=== PATIENT | male | born 1985 | race Caucasian/White ===

== ENCOUNTER 2016-12-15 17:01 | Emergency (ER) | payer OTHER ==
[~2016-12-15] VITALS: Ht 180.3 cm; Wt 83.0 kg
[~2016-12-15 17:01] MED LIST: CEPH500C3 PO; IBUP600T26 PO; LORTA5 PO
[2016-12-15 17:03] VITALS: BP 138/73; PULSE 84; RESP 15; TEMP 98.2; O2SAT 99
--- NOTE | 2016-12-15 17:52 | PD ---
HPI Chief Complaint: Skin Problem Time Seen by Provider: 17:52 Travel History International Travel<30 days: No Contact w/Intl Traveler<30days: No Traveled to known affect area: No History of Present Illness HPI 31-year-old male presents to emergency Department with burning tender rash to the right neck, as well as viral: Sores to the tongue and roof of mouth. As couple of days. Patient states a history of neck pain in the right neck started a week ago with a rash that gotten worse over the last several days. Patient was seen at [facility], and treated with Bactrim and Bactroban. Patient at that time did not have the lateral lesions in his mouth. He denies any other significant symptoms. He has no eye pain or headache. Pain is approximately 6 out of 10. He is concerned now that he has the sores in his mouth. He has no difficulty swallowing. No known drug allergies PFSH Social History Alcohol Use: Yes (12 pk daily ) Tobacco Use: Yes (1/2 ppd) Substance Use: No Allergies-Medications (Allergen,Severity, Reaction): Coded Allergies: No Known Allergies (Unverified , 12/15/16) Reported Meds & Prescriptions Reported Meds & Active Scripts Active Acyclovir 200 Mg Cap 800 Mg PO 5 TIMES A DAY 7 Days Keflex (Cephalexin Monohydrate) 500 Mg Cap 500 Mg PO Q8 5 Days Ibuprofen 600 Mg Tab 600 Mg PO Q8H PRN [place] 5-325 mg (Hydrocodone-Acetaminophen 5-325 mg) 5 mg/325 mg Tab 1 Tab PO Q6H PRN Review of Systems Except as stated in HPI: all other systems reviewed are Neg General / Constitutional: No: Fever Eyes: No: Visual changes HENT: Positive: Sore Throat, Neck Pain, Other (see history present illness.), No: Headaches, Vertigo, Lightheadedness, Rhinitis, Rhinorrhea, Congestion, Nosebleed, Neck Stiffness, Earache Cardiovascular: No: Chest Pain or Discomfort Respiratory: No: Shortness of Breath Gastrointestinal: No: Abdominal Pain Genitourinary: No: Dysuria Musculoskeletal: No: Pain Skin: Positive Rash Neurologic: No: Weakness Psychiatric: No: Depression Endocrine: No: Polydipsia Hematologic/Lymphatic: No: Easy Bruising Physical Exam Narrative GENERAL: Patient appears no acute distress. SKIN: Warm and dry. Patient has a half-dollar sized vesicular erythematous raised lesion with some crusting to the right lateral neck. No other rash or lesions are noted. HEAD: Atraumatic. Normocephalic. EYES: Pupils equal and round. No scleral icterus. No injection or drainage. ENT: No nasal bleeding or discharge. Mucous membranes pink and moist. Patient has multiple erythematous bilateral cold sores to the roof of the mouth and tongue only to the right buccal membranes. NECK: Trachea midline. Supple and nontender without significant lymphadenopathy. CARDIOVASCULAR: Regular rate and rhythm. RESPIRATORY: No accessory muscle use. Clear to auscultation. Breath sounds equal bilaterally. MUSCULOSKELETAL: Extremities without clubbing, cyanosis, or edema. No obvious deformities. NEUROLOGICAL: Awake and alert. No obvious cranial nerve deficits. Motor grossly within normal limits. Five out of 5 muscle strength in the arms and legs. Normal speech. PSYCHIATRIC: Appropriate mood and affect; insight and judgment normal. Data Data Last Documented VS Vital Signs Date Time Temp Pulse Resp B/P Pulse Ox O2 Delivery O2 Flow Rate FiO2 12/15/16 17:03 98.2 84 15 138/73 99 MDM Medical Decision Making Medical Screen Exam Complete: Yes Emergency Medical Condition: Yes Differential Diagnosis Rash. MRSA. Shingles. Viral exanthem. Narrative Course Patient is medically stable at time of exam. Patient is to continue the Bactrim and percent ointment as previously prescribed. Patient started on acyclovir 200 mg tabs he states 4 tablets 5 times a day for 7 days. Patient can take Tylenol as well for pain. Patient to follow up if symptoms do not improve or worsen in the next several days. Diagnosis Primary Impression: Shingles rash Qualified Code: B02.9 - Herpes zoster without complication Referrals: [facility] Patient Instructions: General Instructions, Shingles (ED) Additional Instructions: Patient is to continue the Bactrim and percent ointment as previously prescribed. Patient started on acyclovir 200 mg tabs he states 4 tablets 5 times a day for 7 days. Patient can take Tylenol as well for pain. Patient to follow up if symptoms do not improve or worsen in the next several days. Med/Other Pt SpecificInfo: Prescription(s) given Scripts Acyclovir 200 Mg [id number] Mg PO 5 TIMES A DAY 7 Days Ref 0 Prov:Wily De Jesus MD 12/15/16 Disposition: 01 DISCHARGE HOME Condition: Stable Jaspreet Hdz Dec 15, 2016 17:52
[2016-12-15] MEDS ORDERED: ACYC200C66 PO ×2 (18:00→18:03)
== END 2016-12-15 18:31 | disposition home or self-care (01) ==
LOC: NEPD 17:01
DX: B02.9 Zoster without complications (principal); J02.9 Acute pharyngitis, unspecified; M54.2 Cervicalgia; F17.200 Nicotine dependence, unspecified, uncomplicated; Z79.899 Other long term (current) drug therapy
CPT/HCPCS: 99283

== ENCOUNTER 2017-02-26 15:53 | Emergency (ER) | payer SELFPAY ==
[~2017-02-26] VITALS: Ht 180.3 cm; Wt 83.0 kg
[~2017-02-26 15:53] MED LIST changes: +ACYC200C66 PO
[2017-02-26 15:56] VITALS: BP 150/79; PULSE 81; RESP 18; TEMP 99; O2SAT 99
--- NOTE | 2017-02-26 19:34 | PD ---
HPI Chief Complaint: Chest Pain Time Seen by Provider: 19:24 Travel History International Travel<30 days: No Contact w/Intl Traveler<30days: No Traveled to known affect area: No History of Present Illness HPI 31-year-old male complains of chest pain. Patient states that he has intermittent chest pain for the past 3 years. Patient states the pain is sharp pain medication pressure pain localized to the left chest. Patient denies any pain radiation. Patient denies any palpitation nausea or diaphoresis. Patient states that he has occasionally dry cough recently. Patient states that he has intermittent dizziness. Patient has history hypertension however not on any medication. Patient denies any history diabetes or hyperlipidemia. Patient is a smoker. Patient denies family history of heart disease. On a scale of 1-10 the pain is a 3. PFSH Past Medical History Diminished Hearing: No Immunizations Current: No Shingles: Yes Past Surgical History Eye Surgery: Yes (L EYE SX) Social History Alcohol Use: Yes (OCC ) Tobacco Use: Yes Substance Use: No (DENIES ) Allergies-Medications (Allergen,Severity, Reaction): Coded Allergies: No Known Allergies (Unverified , 02/26/17) Reported Meds & Prescriptions Reported Meds & Active Scripts Active Acyclovir 200 Mg Cap 800 Mg PO 5 TIMES A DAY 7 Days Keflex (Cephalexin Monohydrate) 500 Mg Cap 500 Mg PO Q8 5 Days Ibuprofen 600 Mg Tab 600 Mg PO Q8H PRN [place] 5-325 mg (Hydrocodone-Acetaminophen 5-325 mg) 5 mg/325 mg Tab 1 Tab PO Q6H PRN Review of Systems General / Constitutional: No: Fever Eyes: No: Visual changes HENT: No: Headaches Cardiovascular: Positive: Chest Pain or Discomfort Respiratory: No: Shortness of Breath Gastrointestinal: No: Abdominal Pain Genitourinary: No: Dysuria Musculoskeletal: No: Pain Skin: No Rash Neurologic: No: Weakness Psychiatric: No: Depression Endocrine: No: Polydipsia Hematologic/Lymphatic: No: Easy Bruising Physical Exam Narrative GENERAL: Well-nourished, well-developed patient. SKIN: Focused skin assessment warm/dry. HEAD: Normocephalic. EYES: No scleral icterus. No injection or drainage. NECK: Supple, trachea midline. No JVD or lymphadenopathy. CARDIOVASCULAR: Regular rate and rhythm without murmurs, gallops, or rubs. RESPIRATORY: Breath sounds equal bilaterally. No accessory muscle use. GASTROINTESTINAL: Abdomen soft, non-tender, nondistended. MUSCULOSKELETAL: No cyanosis, or edema. BACK: Nontender without obvious deformity. No CVA tenderness. Neurologic exam normal. Data Data Last Documented VS Vital Signs Date Time Temp Pulse Resp B/P (MAP) Pulse Ox O2 Delivery O2 Flow Rate FiO2 02/26/17 19:44 68 18 100 Room Air 02/26/17 19:44 136/81 (99) 02/26/17 15:56 99.0 Orders Orders Electrocardiogram (02/26/17 ) Electrocardiogram (02/26/17 19:30) Complete Blood Count With Diff (02/26/17 19:30) Comprehensive Metabolic Panel (02/26/17 19:30) Creatine Kinase (Cpk) (02/26/17 19:30) Troponin I (02/26/17 19:30) Prothrombin Time / Inr (Pt) (02/26/17 19:30) Act Partial Throm Time (Ptt) (02/26/17 19:30) Chest, Single Ap (02/26/17 19:30) Iv Access Insert/Monitor (02/26/17 19:30) Ecg Monitoring (02/26/17 19:30) Oximetry (02/26/17 19:30) Labs Laboratory Tests Test 02/26/17 19:35 White Blood Count 10.2 TH/MM3 Red Blood Count 4.60 MIL/MM3 Hemoglobin 14.8 GM/DL Hematocrit 42.5 % Mean Corpuscular Volume 92.4 FL Mean Corpuscular Hemoglobin 32.2 PG Mean Corpuscular Hemoglobin Concent 34.8 % Red Cell Distribution Width 13.3 % Platelet Count 248 TH/MM3 Mean Platelet Volume 8.0 FL Neutrophils (%) (Auto) 64.8 % Lymphocytes (%) (Auto) 26.8 % Monocytes (%) (Auto) 5.7 % Eosinophils (%) (Auto) 2.3 % Basophils (%) (Auto) 0.4 % Neutrophils # (Auto) 6.6 TH/MM3 Lymphocytes # (Auto) 2.7 TH/MM3 Monocytes # (Auto) 0.6 TH/MM3 Eosinophils # (Auto) 0.2 TH/MM3 Basophils # (Auto) 0.0 TH/MM3 CBC Comment DIFF FINAL Differential Comment Prothrombin Time 10.4 SEC Prothromb Time International Ratio 0.9 RATIO Activated Partial Thromboplast Time 26.6 SEC Blood Urea Nitrogen 15 MG/DL Creatinine 0.89 MG/DL Random Glucose 139 MG/DL Total Protein 7.6 GM/DL Albumin 4.0 GM/DL Calcium Level 9.2 MG/DL Alkaline Phosphatase 108 U/L Aspartate Amino Transf (AST/SGOT) 19 U/L Alanine Aminotransferase (ALT/SGPT) 26 U/L Total Bilirubin 0.6 MG/DL Sodium Level 138 MEQ/L Potassium Level 3.7 MEQ/L Chloride Level 105 MEQ/L Carbon Dioxide Level 25.6 MEQ/L Anion Gap 7 MEQ/L Estimat Glomerular Filtration Rate 98 ML/MIN Total Creatine Kinase 230 U/L Troponin I LESS THAN 0.02 NG/ML MDM Medical Decision Making Medical Screen Exam Complete: Yes Emergency Medical Condition: Yes Interpretation(s) 8:57 PM. EKG shows sinus rhythm nonspecific ST-T wave changes. Last Impressions Chest X-Ray 02/26/17 1930 Signed Impressions: Service Date/Time: Sunday, February 26, 2017 20:35 - CONCLUSION: No acute cardiopulmonary disease. Alvino Beckford MD 8:57 PM. CBC within normal limit. CMP within normal limit. Cardiac enzymes are normal. Differential Diagnosis Differential diagnosis including musculoskeletal, angina, [place], PE, pneumothorax. Narrative Course 31-year-old male with left sided chest pain. Diagnosis Primary Impression: Chest pain Qualified Codes: R07.9 - Chest pain, unspecified Patient Instructions: General Instructions Additional Instructions: Advil as needed for pain. Aspirin daily. Follow-up with personal physician. Return if increased chest pain shortness of breath. Med/Other Pt SpecificInfo: No Meds Exist/No RX given Disposition: 01 DISCHARGE HOME Condition: Stable Tristen Sanders MD Feb 26, 2017 19:34
[2017-02-26 19:44] VITALS: BP 136/81; PULSE 68; RESP 18; O2SAT 99
[2017-02-26 20:15] LABS: AUTOMATED NEUTROPHIL # 6.6 TH/MM3 (1.8-7.7); BASOPHIL % 0.4 % (0.0-2.0); EOSINOPHIL # 0.2 TH/MM3 (0-0.4); EOSINOPHIL % 2.3 % (0.0-4.0); HEMATOCRIT 42.5 % (39.0-51.0); HEMO FLAGS DIFF FINAL; LYMPH % 26.8 % (9.0-44.0); LYMPHOCYTE # 2.7 TH/MM3 (1.0-4.8); MEAN CELL VOLUME 92.4 FL (80.0-100.0); MEAN CORPUSCULAR HEMOGLOBIN 32.2 PG (27.0-34.0); MEAN CORPUSCULAR HGB CONC 34.8 % (32.0-36.0); MONO % 5.7 % (0.0-8.0); NEUT % 64.8 % (16.0-70.0); PLATELET COUNT 248 TH/MM3 (150-450); RED CELL DISTRIBUTION WIDTH 13.3 % (11.6-17.2); WHITE BLOOD COUNT 10.2 TH/MM3 (4.0-11.0)
[2017-02-26 20:21] LABS: ANION GAP 7 MEQ/L (5-15); AST (GOT) 19 U/L (15-37); BICARBONATE 25.6 MEQ/L (21.0-32.0); BLOOD UREA NITROGEN 15 MG/DL (7-18); CHLORIDE 105 MEQ/L (98-107); GLOMERULAR FILTRATION RATE 98 ML/MIN (>89); POTASSIUM 3.7 MEQ/L (3.5-5.1); SODIUM (NA) 138 MEQ/L (136-145)
[2017-02-26 20:23] LABS: APTT (PATIENT) 26.6 SEC (24.3-30.1); INTERNATIONAL NORMALIZED RATIO 0.9 RATIO; PROTHROMBIN TIME - PATIENT 10.4 SEC (9.8-11.6)
[2017-02-26 20:26] LABS: ALKALINE PHOSPHATASE 108 U/L (45-117); ALT (GPT) 26 U/L (12-78); CREATINE KINASE 230 U/L (39-308); TOTAL BILIRUBIN ADULT 0.6 MG/DL (0.2-1.0)
--- NOTE | 2017-02-26 20:35 | RADRPT ---
EXAM DATE/TIME: 02/26/2017 20:35 [facility] COMPARISON: No previous studies available for comparison. INDICATIONS : Chest pain. MEDICAL HISTORY : None. SURGICAL HISTORY : None. ENCOUNTER: Initial ACUITY: 1 day PAIN SCORE: 0/10 LOCATION: Bilateral chest FINDINGS: The lungs are clear without infiltrate, nodule, or mass. There is no appreciable pleural effusion fo r technique. Heart and mediastinum are unremarkable. CONCLUSION: No acute cardiopulmonary disease. Alvino Beckford MD on February 26, 2017 at 20:33 Board Certified Radiologist. This report was verified electronically.
--- NOTE | 2017-02-27 14:17 | EKG ---
Date Performed: 02/26/2017 Time Performed: 16:03:37 PTAGE: 31 years EKG: Sinus rhythm NORMAL ECG NO PREVIOUS TRACING DOCTOR: Júnior Raymond Interpretating Date/Time 02/27/2017 14:14:31
== END 2017-02-26 21:14 | disposition home or self-care (01) ==
LOC: NEPD 15:53
DX: R07.9 Chest pain, unspecified (principal); R05 Cough; I10 Essential (primary) hypertension; R42 Dizziness and giddiness; Z72.0 Tobacco use
CPT/HCPCS: 71010; 80053; 82550; 84484; 85025; 85610; 85730; 93005; 99285